=== PATIENT | male | born 1990 | race Caucasian/White ===

== ENCOUNTER 2021-12-26 14:59 | Emergency (ER) | payer BC ==
[2021-12-26 15:20] VITALS: BP 117/79; PULSE 96; RESP 20; TEMP 98
--- NOTE | 2021-12-26 17:04 | ED ---
General Adult HPI - General Chief complaint: Chest Pain Stated complaint: Chest Pain Time Seen by Provider: 12/26/21 16:55 Source: patient Mode of arrival: ambulatory Limitations: no limitations - History of Present Illness Initial comments: Dictation was produced using [employer] dictation software. please excuse any grammatical, word or spelling errors. Chief Complaint: 31-year-old male presents to emergency room for chest pain History of Present Illness: 31-year-old male presents emergency department for chest pain. Patient states it is sharp and radiates to his back. States that it's a 3 on a 10 scale for pain. It's worse when he lies in a decubitus position. No shortness of breath. No associated diaphoresis. Patient does not report that the pain radiates to shoulder down his extremities or up towards his jaw. Does report extensive, history of acute coronary syndrome and his paternal and maternal side. No changes of symptoms with oral intake. The ROS documented in this emergency department record has been reviewed and confirmed by me. Those systems with pertinent positive or negative responses have been documented in the HPI. All other systems are other negative and/or noncontributory. PHYSICAL EXAM: General Impression: Alert and oriented x3, not in acute distress HEENT: Normocephalic atraumatic, extra-ocular movements intact, pupils equal and reactive to light bilaterally, mucous membranes moist. Cardiovascular: Heart regular rate and rhythm Chest: Able to complete full sentences, no retractions, no tachypnea Abdomen: abdomen soft, non-tender, non-distended, no organomegaly Musculoskeletal: Pulses present and equal in all extremities, no peripheral edema Motor: no focal deficits noted Neurological: CN II-XII grossly intact, no focal motor or sensory deficits noted Skin: Intact with no visualized rashes Psych: Normal affect and mood ED course: 31-year-old male presents emergency department for atypical chest pain with typical features. Patient has extensive family history. Signs upon arrival are within acceptable limits. EKG does not show any signs of ischemia or infarction. Laboratory evaluation obtained. CBC metabolic panel is unremarkable. Troponin is negative. Chest x-ray is nonacute. Patient was observed in emergency department for 3 hours and 30 minutes. Reevaluated at bedside at 6:30 PM. Patient well-appearing. Patient clinical presentation unlikely to be acute coronary syndrome or other life-threatening cardiopulmonary process. Patient will be discharged. He is given outpatient referral for cardiology due to his extensive cardiac family history. Patient is a primary care doctor is given multiple referrals. EKG interpretation: Ventricular rate 95, sinus rhythm,. 150, QS 1:15, QTc 388. No OK prolongation, no QTC prolongation, no ST or T-wave changes noted. Overall, this EKG is unremarkable - Related Data Previous Rx's Medication Instructions Recorded HYDROcodone/APAP 5-325MG [[place] 1 tab PO Q6HR PRN #20 tab 12/26/15 5-325] Naproxen [Naprosyn] 500 mg PO Q12HR #60 tab 12/26/15 Allergies Allergy/AdvReac Type Severity Reaction Status Date / Time sulfamethoxazole Allergy Unknown Verified 12/26/21 15:20 [From Bactrim] Childhood trimethoprim [From Bactrim] Allergy Unknown Verified 12/26/21 15:20 Childhood Review of Systems ROS Statement: Those systems with pertinent positive or pertinent negative responses have been documented in the HPI. ROS Other: All systems not noted in ROS Statement are negative. Past Medical History Past Medical History: No Reported History History of Any Multi-Drug Resistant Organisms: None Reported Past Surgical History: No Surgical Hx Reported Past Psychological History: No Psychological Hx Reported Smoking Status: Never smoker Past Alcohol Use History: None Reported Past Drug Use History: None Reported General Exam Limitations: no limitations Course Vital Signs 12/26/21 15:18 Temperature 98 F Pulse Rate 96 Respiratory 20 Rate Blood Pressure 117/79 O2 Sat by Pulse 98 Oximetry Medical Decision Making - Lab Data Result diagrams: 12/26/21 15:15 12/26/21 15:15 Lab Results 12/26/21 12/26/21 12/26/21 Range/Units 15:15 15:15 15:15 WBC 13.5 H (3.8-10.6) k/uL RBC 4.71 (4.30-5.90) m/uL Hgb 15.2 (13.0-17.5) gm/dL Hct 42.9 (39.0-53.0) % MCV 91.1 (80.0-100.0) fL MCH 32.2 (25.0-35.0) pg MCHC 35.4 (31.0-37.0) g/dL RDW 13.0 (11.5-15.5) % Plt Count 273 (150-450) k/uL MPV 8.7 Neutrophils % 76 % Lymphocytes % 15 % Monocytes % 5 % Eosinophils % 1 % Basophils % 1 % Neutrophils # 10.2 H (1.3-7.7) k/uL Lymphocytes # 2.1 (1.0-4.8) k/uL Monocytes # 0.7 (0-1.0) k/uL Eosinophils # 0.2 (0-0.7) k/uL Basophils # 0.1 (0-0.2) k/uL Sodium 139 (137-145) mmol/L Potassium 4.3 (3.5-5.1) mmol/L Chloride 100 (98-107) mmol/L Carbon Dioxide 29 (22-30) mmol/L Anion Gap 10 mmol/L BUN 16 (9-20) mg/dL Creatinine 0.85 (0.66-1.25) mg/dL Est GFR (CKD-EPI)AfAm >90 (>60 ml/min/1.73 sqM) Est GFR (CKD-EPI)NonAf >90 (>60 ml/min/1.73 sqM) Glucose 96 (74-99) mg/dL Calcium 9.6 (8.4-10.2) mg/dL Total Bilirubin 0.9 (0.2-1.3) mg/dL AST 26 (17-59) U/L ALT 35 (4-49) U/L Alkaline Phosphatase 110 (38-126) U/L Troponin I <0.012 (0.000-0.034) ng/mL Total Protein 7.3 (6.3-8.2) g/dL Albumin 4.6 (3.5-5.0) g/dL Lipase 48 (23-300) U/L Disposition Clinical Impression: Chest pain Disposition: HOME SELF-CARE Condition: Good Instructions (If sedation given, give patient instructions): Chest Pain (ED) Is patient prescribed a controlled substance at d/c from ED?: No Referrals: Je Otero DO [STAFF PHYSICIAN] - 1-2 days Mars Burgos MD [REFERRING] - 1-2 days Trav Rg MD [REFERRING] - 1-2 days Lovely Cabello MD [STAFF PHYSICIAN] - 1-2 days Elliot Correa MD [STAFF PHYSICIAN] - 1-2 days Time of Disposition: 18:27
[2021-12-26 17:42] LABS: ALT 35 U/L (4-49); AST 26 U/L (17-59); African American GFR (CKD) >90 (>60 ml/min/1.73 sqM); Albumin 4.6 g/dL (3.5-5.0); Alkaline Phosphatase 110 U/L (38-126); Anion Gap 10 mmol/L; Basophils # (A) 0.1 k/uL (0-0.2); Basophils % (A) 1 %; Blood Urea Nitrogen 16 mg/dL (9-20); Calcium 9.6 mg/dL (8.4-10.2); Carbon Dioxide 29 mmol/L (22-30); Chloride 100 mmol/L (98-107); Eosinophils # (A) 0.2 k/uL (0-0.7); Eosinophils % (A) 1 %; Glucose 96 mg/dL (74-99); HCT 42.9 % (39.0-53.0); HGB 15.2 gm/dL (13.0-17.5); Lipase 48 U/L (23-300); Lymphocytes # (A) 2.1 k/uL (1.0-4.8); Lymphocytes % (A) 15 %; MCH 32.2 pg (25.0-35.0); MCHC 35.4 g/dL (31.0-37.0); MCV 91.1 fL (80.0-100.0); Mean Platelet Volume 8.7; Monocytes # (A) 0.7 k/uL (0-1.0); Monocytes % (A) 5 %; Neutrophils # (A) 10.2 k/uL (1.3-7.7); Neutrophils % (A) 76 %; Non-African American GFR(CKD) >90 (>60 ml/min/1.73 sqM); Platelet Count 273 k/uL (150-450); Potassium 4.3 mmol/L (3.5-5.1); RBC 4.71 m/uL (4.30-5.90); Sodium 139 mmol/L (137-145); Total Bilirubin 0.9 mg/dL (0.2-1.3); Total Protein 7.3 g/dL (6.3-8.2); WBC 13.5 k/uL (3.8-10.6)
--- NOTE | 2021-12-26 18:02 | XR ---
EXAMINATION TYPE: XR chest 2V DATE OF EXAM: 12/26/2021 5:20 PM COMPARISON: None TECHNIQUE: XR chest 2V Frontal and lateral views of the chest. CLINICAL INDICATION:Male, 31 years old with history of CHEST PAIN; FINDINGS: Lungs/Pleura: There is no evidence of pleural effusion, focal consolidation, or pneumothorax. Pulmonary vascularity: Unremarkable. Heart/mediastinum: Cardiomediastinal silhouette is unremarkable. Musculoskeletal: No acute osseous pathology. IMPRESSION: No acute cardiopulmonary disease/process.
== END 2021-12-26 18:52 | disposition home or self-care (01) ==
LOC: EC 14:59
DX: R07.9 Chest pain, unspecified (principal); Z88.2 Allergy status to sulfonamides
CPT/HCPCS: 36415; 71046; 80053; 83690; 84484; 85025; 93005; 99285

== ENCOUNTER 2024-01-05 09:31 | Emergency (ER) | payer BC ==
--- NOTE | 2024-01-05 09:56 | ED ---
Allergic Reaction HPI - General Chief complaint: Allergic Reaction Stated complaint: swollen face x 5days Time Seen by Provider: 01/05/24 09:54 Source: patient, RN notes reviewed Mode of arrival: ambulatory Limitations: no limitations - History of Present Illness Initial Comments: 33-year-old male presented to the ER with a chief complaint of bilateral eye swelling. He reports 5 days ago he noticed some redness and swelling above his right eye throughout the day the swelling progressively worsened to surround his entire eye. He states the next day his left eye was also swollen and red this has progressively worsened to involve his forehead and bilateral cheeks throughout the next couple of days. He has tried [id number] eyedrops and Benadryl without relief. He reports this morning he noted his top lip appeared to be swollen and "tingly" cardiac to the ER for further evaluation. He denies any throat swelling, irritation, difficulty breathing or handling secretions. He denies any new foods, soaps, lotions or exposures. Patient does report an allergy to cats and dogs but states he has not been around any animals lately. He denies any other complaints - Related Data Previous Rx's Medication Instructions Recorded HYDROcodone/APAP 5-325MG [[place] 1 tab PO Q6HR PRN #20 tab 12/26/15 5-325] Naproxen [Naprosyn] 500 mg PO Q12HR #60 tab 12/26/15 Amoxic-Pot Clav 875-125Mg 1 tab PO Q12HR #20 tab 01/05/24 [Augmentin 875-125] Allergies Allergy/AdvReac Type Severity Reaction Status Date / Time sulfamethoxazole Allergy Unknown Verified 01/05/24 09:38 [From Bactrim] Childhood trimethoprim [From Bactrim] Allergy Unknown Verified 01/05/24 09:38 Childhood Review of Systems ROS Statement: Those systems with pertinent positive or pertinent negative responses have been documented in the HPI. ROS Other: All systems not noted in ROS Statement are negative. Past Medical History Past Medical History: No Reported History History of Any Multi-Drug Resistant Organisms: None Reported Past Surgical History: No Surgical Hx Reported Past Psychological History: No Psychological Hx Reported Smoking Status: Never smoker Past Alcohol Use History: Occasional Past Drug Use History: None Reported General Exam Limitations: no limitations General appearance: alert, in no apparent distress Eye exam: Present: PERRL, EOMI (pain free), periorbital swelling (bilateral. left greater than right) Pupils: Present: normal accommodation ENT exam: Present: normal exam, normal oropharynx, mucous membranes moist Respiratory exam: Present: normal lung sounds bilaterally. Absent: respiratory distress, wheezes, rales, rhonchi, stridor Cardiovascular Exam: Present: regular rate, normal rhythm, normal heart sounds. Absent: systolic murmur, diastolic murmur, rubs, gallop, clicks Neurological exam: Present: alert, oriented X3, CN II-XII intact Skin exam: Present: rash (Erythematous macular rash to forehead and bilateral cheeks.) Course Vital Signs 01/05/24 01/05/24 01/05/24 09:36 10:50 11:32 Temperature 97.5 F L 98.4 F 97.8 F Pulse Rate 83 97 92 Respiratory 20 18 18 Rate Blood Pressure 147/103 119/80 121/80 O2 Sat by Pulse 98 95 Oximetry Medical Decision Making - Medical Decision Making Was pt. sent in by a medical professional or institution ([facility], [facility], urgent care, hospital, or snf...) When possible be specific @ -No Did you speak to anyone other than the patient for history (EMS, parent, family, police, friend...)? What history was obtained from this source @ -No Did you review nursing and triage notes (agree or disagree)? Why? @ -I reviewed and agree with nursing and triage notes Were old charts reviewed (outside hosp., previous admission, EMS record, old EKG, old radiological studies, urgent care reports/EKG's, snf records)? Report findings @ -No old charts were reviewed Differential Diagnosis (chest pain, altered mental status, abdominal pain women, abdominal pain men, vaginal bleeding, weakness, fever, dyspnea, syncope, headache, dizziness, GI bleed, back pain, seizure, CVA, palpatations, mental health, musculoskeletal)? @ -Allergic reaction, anaphylaxis, rash, periorbital cellulitis... This list is not meant to be all-inclusive EKG interpreted by me (3pts min.). @ -None done X-rays interpreted by me (1pt min.). @ -None done CT interpreted by me (1pt min.). @ -None done U/S interpreted by me (1pt. min.). @ -None done What testing was considered but not performed or refused? (CT, X-rays, U/S, labs)? Why? @ -None What meds were considered but not given or refused? Why? @ -None Did you discuss the management of the patient with other professionals (pr ofessionals i.e. , PA, STEM MA[employer]ER, lab, RT, psych nurse, social work specialist, gopherman, teacher, data officer, case preparer and liner)? Give summary @ -No Was smoking cessation discussed for >3mins.? @ -No Was critical care preformed (if so, how long)? @ -No Were there social determinants of health that impacted care today? How? (Homelessness, low income, unemployed, alcoholism, drug addiction, transportation, low edu. Level, literacy, decrease access to med. care, penitentiary, rehab)? @ -No Was there de-escalation of care discussed even if they declined (Discuss DNR or withdrawal of care, Hospice)? DNR status @ -No What co-morbidities impacted this encounter? (DM, HTN, Smoking, COPD, CAD, Cancer, CVA, ARF, Chemo, Hep., AIDS, mental health diagnosis, sleep apnea, morbid obesity)? @ -None Was patient admitted / discharged? Hospital course, mention meds given and route, prescriptions, significant lab abnormalities, going to OR and other pertinent info. @ -Discharge. 33-year-old male presenting to the ER with a chief complaint of bilateral eye edema x 5 days. History and physical exam completed. Vitals within normal limits. Patient in no signs of acute distress and nontoxic- appearing. Exam remarkable for significant edema to bilateral periorbital region with overlying erythema. There is an erythematous macular rash spreading to forehead and bilateral cheeks. Edema is greater on left periorbitial region. There is no conjunctival injection with pupils equal round and reactive with in tact extraocular motion. No pain with extraocular motions. Area is not tender to touch. There is no drainage. Patient will be initially treated for allergic reaction and laboratory studies will be obtained, patient is agreeable. Laboratories obtained remarkable for mild leukocytosis of 11.0 with a left shift. Otherwise unremarkable. Patient received IV Solu-Medrol, Benadryl, Pepcid and IV fluids. Upon reevaluation the patient resting comfortably in exam room no signs of acute distress. Patient reporting little to no improvement after medication. Patient is stable for discharge with close outpatient follow- up. Patient will be started on Augmentin as periorbital cellulitis cannot be r uled out. Patient is agreeable to this. Strict return parameters discussed. Patient discharged in stable condition with follow-up to PCP, referral given. Patient verbally expressed understanding and agreement with care plan. Case discussed with ED attending, Dr. Ratliff. Undiagnosed new problem with uncertain prognosis? @ -No Drug Therapy requiring intensive monitoring for toxicity (Heparin, Nitro, Insulin, Cardizem)? @ -No Were any procedures done? @ -No Diagnosis/symptom? @ -Allergic reaction v. Periorbital cellulitis Acute, or Chronic, or Acute on Chronic? @ -Acute Uncomplicated (without systemic symptoms) or Complicated (systemic symptoms)? @ -Uncomplicated Side effects of treatment? @ -No Exacerbation, Progression, or Severe Exacerbation? @ -No Poses a threat to life or bodily function? How? (Chest pain, [place], [place], pneumonia, PE, COPD, DKA, ARF, appy, cholecystitis, CVA, Diverticulitis, Homicidal, Suicidal, threat to staff... and all critical care pts) @ -Low at this time. Allergic reaction can lead to anaphylaxis. - Lab Data Result diagrams: 01/05/24 09:58 01/05/24 09:58 Lab Results 01/05/24 01/05/24 Range/Units 09:58 09:58 WBC 11.0 H (3.8-10.6) k/uL RBC 4.88 (4.30-5.90) m/uL Hgb 14.9 (13.0-17.5) gm/dL Hct 45.0 (39.0-53.0) % MCV 92.1 (80.0-100.0) fL MCH 30.5 (25.0-35.0) pg MCHC 33.1 (31.0-37.0) g/dL RDW 13.8 (11.5-15.5) % Plt Count 281 (150-450) k/uL MPV 7.8 Neutrophils % 76 % Lymphocytes % 12 % Monocytes % 4 % Eosinophils % 6 % Basophils % 1 % Neutrophils # 8.3 H (1.3-7.7) k/uL Lymphocytes # 1.3 (1.0-4.8) k/uL Monocytes # 0.5 (0-1.0) k/uL Eosinophils # 0.7 (0-0.7) k/uL Basophils # 0.1 (0-0.2) k/uL Sodium 139 (137-145) mmol/L Potassium 4.4 (3.5-5.1) mmol/L Chloride 102 (98-107) mmol/L Carbon Dioxide 29 (22-30) mmol/L Anion Gap 8 mmol/L BUN 9 (9-20) mg/dL Creatinine 0.77 (0.66-1.25) mg/dL Est GFR (CKD-EPI)AfAm >90 (>60 ml/min/1.73 sqM) Est GFR (CKD-EPI)NonAf >90 (>60 ml/min/1.73 sqM) Glucose 171 H (74-99) mg/dL Calcium 9.0 (8.4-10.2) mg/dL Total Bilirubin 1.0 (0.2-1.3) mg/dL AST 25 (17-59) U/L ALT 32 (4-49) U/L Alkaline Phosphatase 106 (38-126) U/L Total Protein 7.4 (6.3-8.2) g/dL Albumin 4.3 (3.5-5.0) g/dL Disposition Clinical Impression: Eyelid edema Disposition: HOME SELF-CARE Condition: Stable Additional Instructions: Complete full course of antibiotics. Return to the ER for any new or worsening concerns. Prescriptions: Amoxic-Pot Clav 875-125Mg [Augmentin 875-125] 1 tab PO Q12HR #20 tab Is patient prescribed a controlled substance at d/c from ED?: No Referrals: None,Stated [Primary Care Provider] - 1-2 days Forms: Area PCPs Time of Disposition: 11:12
[2024-01-05] MEDS: SODIUM CHLORIDE 0.9% 1,000 ML IV STA (10:13)
[2024-01-05 10:22] LABS: Basophils # (A) 0.1 k/uL (0-0.2); Basophils % (A) 1 %; Eosinophils # (A) 0.7 k/uL (0-0.7); Eosinophils % (A) 6 %; HGB 14.9 gm/dL (13.0-17.5); Lymphocytes # (A) 1.3 k/uL (1.0-4.8); Lymphocytes % (A) 12 %; MCH 30.5 pg (25.0-35.0); MCHC 33.1 g/dL (31.0-37.0); MCV 92.1 fL (80.0-100.0); Mean Platelet Volume 7.8; Monocytes # (A) 0.5 k/uL (0-1.0); Monocytes % (A) 4 %; Neutrophils # (A) 8.3 k/uL (1.3-7.7); Neutrophils % (A) 76 %; Platelet Count 281 k/uL (150-450); RBC 4.88 m/uL (4.30-5.90); RDW 13.8 % (11.5-15.5)
[2024-01-05] MEDS: FAMOTIDINE 20 MG/2 ML VIAL IV STA (10:24)
[2024-01-05] MEDS: methylPREDNISolone SOD SUCCI 125 MG/2 ML VIAL IV STA (10:24)
[2024-01-05] MEDS: diphenhydrAMINE 50 MG/ML 1 ML VIAL IVP STA (10:24)
[2024-01-05 10:54] VITALS: RESP 18
[2024-01-05 10:58] LABS: ALT 32 U/L (4-49); AST 25 U/L (17-59); African American GFR (CKD) >90 (>60 ml/min/1.73 sqM); Albumin 4.3 g/dL (3.5-5.0); Alkaline Phosphatase 106 U/L (38-126); Anion Gap 8 mmol/L; Blood Urea Nitrogen 9 mg/dL (9-20); Carbon Dioxide 29 mmol/L (22-30); Chloride 102 mmol/L (98-107); Glucose 171 mg/dL (74-99); Non-African American GFR(CKD) >90 (>60 ml/min/1.73 sqM); Potassium 4.4 mmol/L (3.5-5.1); Sodium 139 mmol/L (137-145); Total Protein 7.4 g/dL (6.3-8.2)
[2024-01-05 11:33] VITALS: BP 121/80; PULSE 92; TEMP 97.8
== END 2024-01-05 11:33 | disposition home or self-care (01) ==
LOC: EC 09:31
DX: L03.213 Periorbital cellulitis (principal); Z88.1 Allergy status to other antibiotic agents; Z88.2 Allergy status to sulfonamides
CPT/HCPCS: 36415; 80053; 85025; 99283; 96374; 96375 ×2; 96361; J1200; J3490; J2919; 99284